=== PATIENT | female | born 1950 | race Caucasian/White ===

== ENCOUNTER 2023-12-04 15:53 | Emergency (ER) | payer BC, MEDICARE, SELFPAY ==
[2023-12-04 16:01] VITALS: BP 174/91; PULSE 106; RESP 18; TEMP 36.2; O2SAT 98; BMI 21.8
--- NOTE | 2023-12-04 16:20 | CRLHL7_ITS ---
For Patients: As a result of the Century Cures Act, medical imaging exams and procedure reports are released immediately into your electronic medical record. You may view this report before your referring provider. If you have questions, please contact your health care provider. INDICATION: Fall, ankle swelling lateral malleolus, injury TECHNIQUE: Ankle radiograph 3 views left COMPARISON: None FINDINGS: Bone: No acute fractures or aggressive bone lesions are identified. Joint: The ankle mortise joint and the visualized hindfoot joints are unremarkable in appearance. No significant ankle effusion is seen. Soft tissue: Mild lateral swelling is noted. The Kager fat pad and the Achilles` tendon are normal in appearance. No radiopaque foreign bodies are seen. IMPRESSION: 1. No acute osseous injuries or abnormalities are noted. Dictated by: Zachary Velazquez MD @ 12/04/2023 16:43:00 (Electronically Signed)
--- NOTE | 2023-12-04 16:21 | ED_ITS ---
HPI - General Adult General Chief complaint: Extremity Pain/Injury, Lower Stated complaint: left ankle injury, fell, passed out Time Seen by Provider: 12/04/23 15:56 Source: patient and family Mode of arrival: ambulatory Limitations: no limitations History of Present Illness HPI narrative: 73-year-old female presents to the emergency department for evaluation of left ankle pain. She reports that she was going down the stairs when her foot caught on the last step causing an inversion-type injury. She did fall then down the 1 step. She did not hit her head. She reports that she had significant pain and was so surprised that it did cause her to pass out once she had landed on the ground but just for a couple of seconds and then she came to. There was no seizure, no tongue biting, no urination. She is not been drinking alcohol. She feels no chest pain, no shortness of breath notes no neurological changes. With no history of arrhythmias. No recent illness or fever. She was able to stand up and bear a little weight but had significant pain in the lateral ankle, causing her to call her in from the [facility] and bring her in for evaluation. Pain is located at the lateral malleolus. She notes bruising and swelling in this area as well. She has pain with inversion and eversion but can flex and extend somewhat. Does have a little bit of pain that radiates up the back of the calf now but no pain in the knee, hip or distal foot. No prior history of fracture or surgery to the area. Did not try taking any pain medication prior to coming to the ED. Opposite leg is unaffected. She states that her past medical history is benign, no major long-term health problems. No allergies. Nonsmoker. Nursing notes reviewed. ROS is notable for the musculoskeletal and syncopal event as described above. Otherwise denies times 12 systems. Related Data Home Medications ?Medication ?Instructions ?Recorded ?Confirmed No Known Home Medications 12/04/23 12/04/23 PFSH PFS Social History Smoking Status: Never smoker Do you use any of these nicotine containing products: None How often do you have a drink containing alcohol: never How often do you have six or more drinks on one occasion: Never AUDIT-C Alcohol total score: 0 Non-prescribed substance use: denies use service: No Exam Const: Vital Signs, click to edit/add: Vital Signs - 24 hr 12/04/23 16:01 Temperature 97.2 F L Pulse Rate [Right Pulse Oximeter] 106 H Respiratory Rate 18 Blood Pressure [Ri ght Upper Arm] 174/91 H Pulse Oximetry 98 Oxygen Delivery Me thod Room Air Documenting provider has reviewed patient's vital signs: yes Common normals: no apparent distress and alert General appearance: well kempt HENMT: Common normals: normocephalic Head and scalp: normocephalic Face and sinus: normal facial exam Mouth: oral and palatal mucosa normal Throat: posterior oropharynx normal Eye: Common normals: conjunctivae normal General eye: normal appearance of both eyes Conjunctiva: conjunctiva(e) normal Neck & C-Spine: Common normals: no lymphadenopathy General: normal visual inspection Chest: Common normals: inspection of chest normal Resp: Common normals: normal respiratory effort, no use of accessory muscles and clear to auscultation bilaterally Effort & inspection: able to speak in complete sentences Auscultation: clear to auscultation bilaterally Cardio: Common normals: regular rate, regular rhythm, S1 normal heart sound, S2 normal heart sound and no murmurs Rate: regular rate Rhythm: regular rhythm Heart sounds: S1 normal and S2 normal Extremity: Other: Right leg appears normal. Left ankle has moderate swelling and bruising at the lateral malleolus already. Toes and forefoot normal with normal movement. Knee with normal range of motion, no swelling no deformity or tenderness. At the left ankle, she has 20? of flexion and extension though she notes pain. Pain is increased with inversion and eversion. There is point bony tenderness along the lateral malleolus but there is no tenderness at the medial malleolus, heel or midfoot. His excellent pulses, normal capillary refill and normal sensation in all toes. Neuro: Sensorium/orientation: alert Speech: speech normal Motor exam: no tremor noted Psych: Common normals: thought process normal Appearance: well kempt Attitude: engaged Activity/motor behavior: appropriate eye contact Mood and affect: euthymic mood Thought process: normal thought process Insight: insight good Judgement: judgment good Skin: Common normals: no rashes or lesions noted Narrative: No broken skin associated with injury General skin exam: no rashes or lesions noted Course Course ED Course: 73-year-old female with mechanical type fall down the stairs with an inversion injury to the left ankle. Swelling and tenderness at the lateral malleolus is suspicious for fibular fracture. She did have a syncopal spell which she attributes to the pain. I will get an EKG to ensure there is no sign of arrhythmia. Her neurological exam is intact. She is not experiencing any chest pain, shortness of breath, dizziness or neurological changes. If the EKG is normal, I do not think further workup for that is necessary. For the ankle injury, will obtain x-ray of the left ankle, give hydrocodone p.o. x1 for pain and re-evaluate. Reevaluation(s) Time of Reevaluation #1: 16:45 Reevaluation #1: Discussed findings with patient, no fracture. Suspect bad sprain. Will wrap with Canelo wrap, crutches for the next 2-3 days, weaning off gradually as tolerated. For pain Tylenol and ibuprofen. Elevation. Ice for the next couple of days. Alarm symptoms reviewed that would warrant ED presentation. Primary care follow-up if not markedly improved in 2 weeks. After she is able to tolerate weight-bearing, I would recommend that she invest in an [id number] ankle brace to wear for 2 weeks. She verbalizes understanding and agreement of plan Vital Signs Vital signs: Initial Vital Signs Temperature 97.2 F L 12/04/23 16:01 Temperature Source Temporal Artery Scan 12/04/23 16:01 Pulse Rate 106 H 12/04/23 16:01 Pulse Rhythm Regular 12/04/23 16:01 Pulse Strength 3+ Normal 12/04/23 16:01 Respiratory Rate 18 12/04/23 16:01 Blood Pressure 174/91 H 12/04/23 16:01 Blood Pressure Mean 118 H 12/04/23 16:01 Blood Pressure Position Semi-Fowlers 12/04/23 16:01 Pulse Oximetry 98 12/04/23 16:01 Oxygen Delivery Method Room Air 12/04/23 16:01 Vital Signs Temperature 97.2 F L 12/04/23 16:01 Pulse Rate 106 H 12/04/23 16:01 Respiratory Rate 18 12/04/23 16:01 Blood Pressure 174/91 H 12/04/23 16:01 Pulse Oximetry 98 12/04/23 16:01 Oxygen Delivery Method Room Air 12/04/23 16:01 Temperature 97.2 F L 12/04/23 16:01 Pulse Rate 106 H 12/04/23 16:01 Respiratory Rate 18 12/04/23 16:01 Blood Pressure 174/91 H 12/04/23 16:01 Pulse Oximetry 98 12/04/23 16:01 Oxygen Delivery Method Room Air 12/04/23 16:01 Medications Administered Medications: Discontinued Medications Generic Name Dose Route Start Last Admin Trade Name Breanna PRN Reason Stop Dose Admin Hydrocodone Bitart/Acetaminophen 1 tab 12/04/23 16:20 12/04/23 16:27 Hydrocodone-Acetamin 5-325 Mg 1 Tab PO 12/04/23 16:21 1 tab ONCE ONE Administration Medical Decision Making Imaging Data Left ankle x-ray: Attestation: I have reviewed the pertinent imaging results. My impression: No fracture or effusion Radiologist's impression: FINDINGS: Bone: No acute fractures or aggressive bone lesions are identified. Joint: The ankle mortise joint and the visualized hindfoot joints are unremarkable in appearance. No significant ankle effusion is seen. Soft tissue: Mild lateral swelling is noted. The Kager fat pad and the Achilles` tendon are normal in appearance. No radiopaque foreign bodies are seen. Discharge Plan Discharge Clinical Impression: Ankle sprain and strain Patient Disposition: Home w/ Parent or Adult Condition: Stable Instructions: Ankle Sprain (ED) Additional Instructions: I think we are both pretty surprised that there was no fracture. This is great though. Certainly there is a sprain which is a tearing of the ligaments that help support the bones. Honestly, the pain is about equal between a bad sprain and mild fracture. Crutches for the next 2-3 days, ice for 10 minutes every 2 hours while awake. Once you are able to bear some weight in 2-3 days, wear an ankle brace to help support the ankle for the next 2 weeks. If you have access to a knee scooter, this may be helpful for you instead of the crutches. It is okay to use the crutches or knee scooter for a little bit longer if you are having prolonged standing or more intense activity. For pain, recommend Tylenol 1000 mg every 6 hours and/or ibuprofen 600 mg every 6 hours. This should be markedly better in 2 weeks. If not improving, please follow-up with her primary care provider for more advanced imaging and re- evaluation. A little bit of numbness is very common because of the swelling and how that will press on the sensory nerves. You should be able to move the toes and have some basic feeling. Any severe pain, new deformity or other alarming concerns should be re-evaluated. Activity Level: Toe Touch Wt Bearing Discharge Diet: Regular Prescriptions: No Action No Known Home Medications Follow Up/Referrals: Fany Leonard MD [Primary Care Provider] - Stand Alone Forms: [facility] Info Instructions
[2023-12-04] MEDS: HYDROCODONE-ACETAMIN 5-325 MG 1 TAB PO (16:27)
== END 2023-12-04 17:07 | disposition home or self-care (01) ==
PROVIDERS: Emergency Provider Family Medicine; PCP Family Medicine
DX: S93.402A Sprain of unspecified ligament of left ankle, initial encounter (principal); W10.9XXA Fall (on) (from) unspecified stairs and steps, initial encounter
CPT/HCPCS: 73610; 93005; 99283; 99284; A9270